=== PATIENT | male | born 1970 | race Caucasian/White ===

== ENCOUNTER → 2017-12-23 | Outpatient (CLI) | payer OTHER ==
[~2017-12-23] MED LIST: HYDROCODONE-AP1 EAC6 PO; IBUPROFEN 800800 M1 PO; LODINE 200MG C200 M1; ROBAXIN 750 MG750 M1 PO
== END ==
LOC: M.CT 14:08
DX: Z13.6 Encounter for screening for cardiovascular disorders (principal)